=== PATIENT | female | born 1975 | race Caucasian/White ===

== ENCOUNTER → 2017-07-09 | Outpatient (CLI) | payer MEDICARE | END | disposition home or self-care (01) | LOC: CFH 12:13 | PROVIDERS: ATTEND Internal Medicine | DX: R42 Dizziness and giddiness (principal) | CPT/HCPCS: 70544; 82565 ==

== ENCOUNTER → 2017-11-02 | Outpatient (CLI) | payer MEDICARE ==
[~2017-11-02] MED LIST: BUTA1CAP30 PO; ETOD400T PO; LISI-167 PO; MECL25TA4 PO; ONDA4TAB7 PO; OXYC-307 PO; PRAV10TA2 PO; TIZA4CAP PO
[2017-11-02 11:28] LABS: BASOPHILS # (AUTO) 0.05 x10^3/uL (0-0.1); BASOPHILS % (AUTO) 1 % (0-1); EOSINOPHILS # (AUTO) 0.09 x10^3/uL (0-0.4); EOSINOPHILS % (AUTO) 1 % (1-7); LYMPHOCYTES # (AUTO) 1.65 x10^3/uL (1-3.4); LYMPHOCYTES % (AUTO) 24 % (22-44); MD NO; MEAN CORPUSCULAR HGB CONC 33.8 g/dL (32.4-35.8); MEAN CORPUSCULAR VOLUME 94.7 fL (80-100); MONOCYTES # (AUTO) 0.36 x10^3/uL (0.2-0.8); MONOCYTES % (AUTO) 5 % (2-9); NEUTROPHILS % (AUTO) 69 % (42-75); PLATELET COUNT 270 x10^3/uL (130-400); RED BLOOD COUNT 4.51 x10^6/uL (3.82-5.3); RED CELL DISTRIBUTION WIDTH 11.9 % (9.6-15.2)
[2017-11-02 11:35] LABS: MICROSCOPIC NOT IND
[2017-11-02 11:38] LABS: CULTURE INDICATED? NO
[2017-11-02 11:38] LABS: INTERNATIONAL NORMALIZED RATIO 0.99 (0.93-1.1); PROTHROMBIN TIME 10.3 Seconds (9.6-11.5)
[2017-11-02 11:40] LABS: ALANINE AMINOTRANSFERASE 34 U/L (12-78); ALBUMIN 4.1 g/dL (3.4-5.0); ANION GAP 6 mmol/L (5-15); CALCIUM 8.2 mg/dL (8.5-10.1); CHLORIDE 108 mmol/L (98-107)
[2017-11-02 11:42] LABS: ALKALINE PHOSPHATASE 58 U/L (45-117); BILIRUBIN,TOTAL 0.4 mg/dL (0.2-1.0); TOTAL PROTEIN 7.9 g/dL (6.4-8.2)
== END ==
LOC: STAR 10:22
PROVIDERS: ATTEND Neurological Surgery
DX: Z01.818 Encounter for other preprocedural examination (principal); M54.16 Radiculopathy, lumbar region; M51.36 Other intervertebral disc degeneration, lumbar region; M48.062 Spinal stenosis, lumbar region with neurogenic claudication
CPT/HCPCS: 36415; 71046; 80053; 81003; 85025; 85610; 85730; 93005

== ENCOUNTER 2017-11-10 05:27 | Inpatient (IN) | payer MEDICARE ==
[~2017-11-10] VITALS: Ht 160 cm; Wt 87.0 kg
[2017-11-10] MEDS ORDERED: LACTATED RINGERS 1,000 ML IV SCH (06:03)
[2017-11-10] MEDS ORDERED: BACITRACIN 50,000 UNIT ONE (06:15)
[2017-11-10] MEDS ORDERED: THROMBIN 20,000 UNIT VIAL TP ONE (06:15)
[2017-11-10 06:21] LABS: HCG UR SG 1.017 (1.003-1.030)
[2017-11-10 06:32] LABS: AMPHETAMINE SCREEN, URINE Negative (Negative); BARBITURATE SCREEN, URINE Positive (Negative); BENZODIAZEPINE SCREEN, URINE Negative (Negative); CANNABINOID SCREEN, URINE Negative (Negative); COCAINE SCREEN, URINE Negative (Negative); METHADONE SCREEN, URINE Negative (Negative); OPIATE SCREEN, URINE Positive (Negative)
[2017-11-10] MEDS ORDERED: FENTANYL PF 250 MCG/5ML ONE ×2 (07:04→08:17)
[2017-11-10] MEDS ORDERED: MIDAZOLAM 1 MG/ML, 2ML ONE (07:04)
[2017-11-10] MEDS ORDERED: KETAMINE 100 MG/ML, 5ML ONE (07:10)
[2017-11-10] MEDS ORDERED: DEXMEDETOMIDINE 200 MCG/2 ML ONE (07:10)
[2017-11-10] MEDS ORDERED: LABETALOL 5MG/ML, 20ML IV PRN (07:30)
[2017-11-10] MEDS ORDERED: FENTANYL PF 100 MCG/2ML IV PRN (07:30)
[2017-11-10] MEDS ORDERED: PROMETHAZINE 25 MG/ML, 1ML IV PRN (07:30)
[2017-11-10] MEDS ORDERED: LORazepam 2 MG/ML, 1ML IVPush PRN (07:30)
[2017-11-10] MEDS ORDERED: hydrALAzine 20 MG/ML, 1ML IV PRN (07:30)
[2017-11-10] MEDS ORDERED: OXYcodone 5 MG/5 ML ORAL.SOL UDC PO PRN (07:30)
[2017-11-10] MEDS ORDERED: MECLIZINE CHEWABLE 25 MG TAB PO PRN (07:30)
[2017-11-10] MEDS ORDERED: ACETAMINOPHEN 325 MG TABLET PO PRN (07:30)
[2017-11-10] MEDS ORDERED: HALOPERIDOL 5 MG/ML IV PRN (07:30)
[2017-11-10] MEDS ORDERED: MEPERIDINE/PF 25MG/0.5ML IVPush PRN (07:30)
[2017-11-10] MEDS ORDERED: DEXAMETHASONE 4 MG/ML, 1ML ONE (08:06)
[2017-11-10] MEDS ORDERED: ROCURONIUM 10MG/ML,5ML ONE (08:06)
[2017-11-10] MEDS ORDERED: CEFAZOLIN 1,000 MG ONE (08:06)
[2017-11-10] MEDS ORDERED: PROPOFOL 10 MG/ML, 20ML ONE (08:06)
[2017-11-10] MEDS ORDERED: METOCLOPRAMIDE 5 MG/ML, 2ML ONE (08:55)
[2017-11-10] MEDS ORDERED: HYDROmorphone 2 MG/ML, 1ML ONE (09:28)
[2017-11-10] MEDS ORDERED: ACETAMINOPHEN 650 MG/20.3 ML UDC ONE (09:28)
[2017-11-10] MEDS ORDERED: OXYcodone 5 MG/5 ML ORAL.SOL UDC ONE (09:29)
[2017-11-10] MEDS ORDERED: PROMETHAZINE 25 MG/ML, 1ML ONE (09:29)
[2017-11-10] MEDS ORDERED: PHARMACY MAY ADJ FOR RENAL FX MC PRN (09:30)
[2017-11-10] MEDS ORDERED: LABETALOL 5MG/ML, 20ML IVPush PRN (09:30)
[2017-11-10] MEDS ORDERED: SENNA/DOCUSATE TABLET PO PRN (09:30)
[2017-11-10] MEDS ORDERED: ONDANSETRON 2MG/ML, 2ML IVPush PRN (09:30)
[2017-11-10] MEDS ORDERED: DIPHENHYDRAMINE 50 MG/ML, 1ML IVPush PRN (09:30)
[2017-11-10] MEDS ORDERED: MAGNESIUM HYDROXIDE 8%, 30ML UDC PO PRN (09:30)
[2017-11-10] MEDS ORDERED: MECLIZINE HCL 25 MG PO PRN (09:30)
[2017-11-10] MEDS ORDERED: BUTALB/APAP/CAFFEINE 50MG/325MG/40MG PO PRN (09:30)
[2017-11-10] MEDS ORDERED: HYDROcodone/APAP 5/325 TABLET PO PRN (09:30)
[2017-11-10] MEDS ORDERED: BISACODYL 10 MG SUPP PR PRN (09:30)
[2017-11-10] MEDS ORDERED: DIPHENHYDRAMINE 50 MG CAPSULE PO PRN (09:30)
[2017-11-10] MEDS: HYDROmorphone 1 MG/ML, 1ML IV PRN ×3 (09:34→10:03)
[2017-11-10 10:45] VITALS: BP 96/57
[2017-11-10] MEDS: MORPHINE SULFATE 4 MG/ML, 1ML IVPush PRN ×4 (11:32→23:16)
[2017-11-10] MEDS ORDERED: ONDANSETRON ODT 4 MG ONE (11:37)
[2017-11-10] MEDS: CEFAZOLIN PMX 1GM/50ML 50 ML IVPB SCH ×2 (12:43→20:38)
[2017-11-10] MEDS: METOCLOPRAMIDE 5 MG/ML, 2ML IVPush SCH ×2 (12:46→17:19)
[2017-11-10] MEDS: D5%-0.9% NACL+KCL 20MEQ 1,000 ML IV SCH (12:47)
[2017-11-10 13:56] VITALS: BP 105/61
[2017-11-10] MEDS: OXYcodone/APAP 5/325MG TABLET PO PRN ×2 (17:22→21:51)
[2017-11-10] MEDS: PRAVASTATIN 20 MG TABLET PO SCH (19:32)
[2017-11-10] MEDS: METHOCARBAMOL 750 MG TABLET PO PRN (19:32)
[2017-11-10] MEDS: SODIUM CHLORIDE FLUSH 10ML SYR IVF SCH (19:33)
[2017-11-10 20:44] VITALS: BP 98/49
[2017-11-11 00:06] VITALS: BP 104/60
[2017-11-11] MEDS: METOCLOPRAMIDE 5 MG/ML, 2ML IVPush SCH ×2 (01:32→08:09)
[2017-11-11] MEDS: OXYcodone/APAP 5/325MG TABLET PO PRN ×5 (01:57→22:06)
[2017-11-11 04:00] VITALS: BP 103/69
[2017-11-11] MEDS: MORPHINE SULFATE 4 MG/ML, 1ML IVPush PRN ×3 (05:42→19:59)
[2017-11-11] MEDS: ONDANSETRON ODT 4 MG PO PRN ×2 (05:52→14:21)
[2017-11-11 06:00] LABS: ALBUMIN 3.2 g/dL (3.4-5.0); ANION GAP 7 mmol/L (5-15); CALCIUM 7.5 mg/dL (8.5-10.1); CHLORIDE 107 mmol/L (98-107)
[2017-11-11] MEDS ORDERED: BACITRACIN 50,000 UNIT ONE (06:06)
[2017-11-11] MEDS ORDERED: THROMBIN 5,000 UNIT VIAL TP ONE (06:06)
[2017-11-11] MEDS ORDERED: BUPIVACAINE/PF-EPI 0.5% 1:200K ONE (06:06)
[2017-11-11] MEDS: METHOCARBAMOL 750 MG TABLET PO PRN ×3 (06:10→22:06)
[2017-11-11] MEDS ORDERED: MIDAZOLAM 1 MG/ML, 2ML ONE (07:38)
[2017-11-11] MEDS ORDERED: FENTANYL PF 250 MCG/5ML ONE (07:39)
[2017-11-11] MEDS: SODIUM CHLORIDE FLUSH 10ML SYR IVF SCH ×2 (08:09→19:59)
[2017-11-11] MEDS: LISINOPRIL 10 MG TABLET PO SCH (08:09)
[2017-11-11 08:19] VITALS: BP 106/66
[2017-11-11] MEDS ORDERED: KETAMINE 10 MG/ML, 20ML ONE (09:25)
[2017-11-11] MEDS ORDERED: PROPOFOL 100 ML ONE (09:25)
[2017-11-11] MEDS ORDERED: morphine SULFATE/PF 0.5 MG/ML, 10ML IV ONE (09:30)
[2017-11-11] MEDS ORDERED: morphine SULFATE 10 MG/ML, 1ML ONE (09:32)
[2017-11-11] MEDS ORDERED: LIDOCAINE 2%, 10ML ONE (09:39)
[2017-11-11] MEDS ORDERED: SUCCINYLCHOLINE 20 MG/ML, 10ML ONE (09:42)
[2017-11-11] MEDS ORDERED: LACTATED RINGERS 1,000 ML ONE (09:42)
[2017-11-11] MEDS ORDERED: MORPHINE SULFATE 4 MG/ML, 1ML IV ONE (10:00)
[2017-11-11] MEDS ORDERED: ONDANSETRON ODT 8 MG PO PRN (10:30)
[2017-11-11] MEDS ORDERED: PROMETHAZINE 25 MG/ML, 1ML IV PRN (10:30)
[2017-11-11] MEDS ORDERED: OXYcodone 5 MG/5 ML ORAL.SOL UDC PO PRN (10:30)
[2017-11-11] MEDS ORDERED: HYDROcodone/APAP 7.5-325MG/15ML UDC PO PRN (10:30)
[2017-11-11] MEDS ORDERED: LABETALOL 5MG/ML, 20ML IV PRN (10:30)
[2017-11-11] MEDS ORDERED: DIAZEPAM 5 MG/ML, 2ML IVPush PRN (10:30)
[2017-11-11] MEDS ORDERED: ACETAMINOPHEN 325 MG TABLET PO PRN (10:30)
[2017-11-11] MEDS ORDERED: HALOPERIDOL 5 MG/ML IV PRN (10:30)
[2017-11-11] MEDS ORDERED: hydrALAzine 20 MG/ML, 1ML IV PRN (10:30)
[2017-11-11] MEDS ORDERED: MORPHINE SULFATE 4 MG/ML, 1ML IVPush PRN (10:30)
[2017-11-11] MEDS ORDERED: FENTANYL PF 100 MCG/2ML ONE ×3 (10:49→12:29)
[2017-11-11] MEDS ORDERED: VANCOMYCIN 1,000 MG ONE (11:49)
[2017-11-11] MEDS ORDERED: BUPIVACAINE/PF 0.25% ONE (11:52)
[2017-11-11] MEDS ORDERED: MEPERIDINE/PF 25MG/0.5ML ONE (12:29)
[2017-11-11] MEDS ORDERED: HYDROmorphone 1 MG/ML, 1ML ONE (12:29)
[2017-11-11] MEDS: HYDROmorphone 1 MG/ML, 1ML IV PRN ×2 (12:46→13:02)
[2017-11-11] MEDS: FENTANYL PF 100 MCG/2ML IV PRN ×2 (13:00→13:07)
[2017-11-11] MEDS ORDERED: MEPERIDINE/PF 25MG/0.5ML IVPush PRN (13:00)
[2017-11-11] MEDS: D5%-0.9% NACL+KCL 20MEQ 1,000 ML IV SCH (13:51)
[2017-11-11 14:20] VITALS: BP 113/74
[2017-11-11 18:48] VITALS: BP 103/65
[2017-11-11] MEDS: PRAVASTATIN 20 MG TABLET PO SCH (19:59)
[2017-11-12] MEDS: MORPHINE SULFATE 4 MG/ML, 1ML IVPush PRN ×6 (00:03→20:55)
[2017-11-12 00:10] VITALS: BP 107/65
[2017-11-12] MEDS: D5%-0.9% NACL+KCL 20MEQ 1,000 ML IV SCH ×2 (01:20→14:40)
[2017-11-12] MEDS: OXYcodone/APAP 5/325MG TABLET PO PRN ×6 (02:18→22:27)
[2017-11-12 05:33] LABS: CHLORIDE 109 mmol/L (98-107)
[2017-11-12 05:36] LABS: ANION GAP 6 mmol/L (5-15); CALCIUM 8.1 mg/dL (8.5-10.1); CREATININE 0.57 mg/dL (0.55-1.02)
[2017-11-12] MEDS: METHOCARBAMOL 750 MG TABLET PO PRN ×2 (06:09→18:35)
[2017-11-12 08:14] VITALS: BP 97/62
[2017-11-12] MEDS: LISINOPRIL 10 MG TABLET PO SCH (08:22)
[2017-11-12] MEDS: SODIUM CHLORIDE FLUSH 10ML SYR IVF SCH ×2 (09:00→20:59)
[2017-11-12 09:20] LABS: ANION GAP 7 mmol/L (5-15); CALCIUM 7.7 mg/dL (8.5-10.1); CHLORIDE 106 mmol/L (98-107)
[2017-11-12 09:22] LABS: CREATININE 0.64 mg/dL (0.55-1.02)
[2017-11-12 13:45] VITALS: BP 91/57
[2017-11-12 19:06] VITALS: BP 105/68
[2017-11-12] MEDS: PRAVASTATIN 20 MG TABLET PO SCH (20:55)
[2017-11-13] MEDS: MORPHINE SULFATE 4 MG/ML, 1ML IVPush PRN ×2 (00:37→04:32)
[2017-11-13 02:24] VITALS: BP 101/62
[2017-11-13] MEDS: ONDANSETRON ODT 4 MG PO PRN (02:31)
[2017-11-13] MEDS: OXYcodone/APAP 5/325MG TABLET PO PRN ×2 (02:58→08:19)
[2017-11-13] MEDS: METHOCARBAMOL 750 MG TABLET PO PRN (02:58)
[2017-11-13] MEDS: D5%-0.9% NACL+KCL 20MEQ 1,000 ML IV SCH (04:00)
[2017-11-13 06:05] LABS: CHLORIDE 105 mmol/L (98-107)
[2017-11-13 06:09] LABS: ANION GAP 7 mmol/L (5-15); CALCIUM 8.1 mg/dL (8.5-10.1); CREATININE 0.55 mg/dL (0.55-1.02)
[2017-11-13] MEDS: LISINOPRIL 10 MG TABLET PO SCH (08:20)
[2017-11-13] MEDS: SODIUM CHLORIDE FLUSH 10ML SYR IVF SCH (08:20)
[2017-11-13 08:32] VITALS: BP 100/57
[2017-11-13 09:56] LABS: ALBUMIN 2.8 g/dL (3.4-5.0); ANION GAP 6 mmol/L (5-15); CALCIUM 8.1 mg/dL (8.5-10.1); CHLORIDE 105 mmol/L (98-107)
[2017-11-13 09:57] LABS: CREATININE 0.65 mg/dL (0.55-1.02)
[2017-11-13] MEDS ORDERED: OXYC-302 PO (10:05)
[2017-11-13] MEDS ORDERED: METH750T87 PO (10:05)
== END 2017-11-13 10:53 | disposition home or self-care (01) | DRG 453 ==
LOC: ORIP 05:27 → 4NOR 10:24 → DCLOUNGE 11-13 10:42
PROVIDERS: ADMIT Neurological Surgery; ATTEND Neurological Surgery
PROC: 0SG00A0 Fusion of Lumbar Vertebral Joint with Interbody Fusion Device, Anterior Approach, Anterior Column, Open Approach (ICD-10-PCS; 2017-11-10)
PROC: 0SB20ZZ Excision of Lumbar Vertebral Disc, Open Approach (ICD-10-PCS; 2017-11-10)
PROC: 0SB40ZZ Excision of Lumbosacral Disc, Open Approach (ICD-10-PCS; 2017-11-10)
PROC: 0SG30A0 Fusion of Lumbosacral Joint with Interbody Fusion Device, Anterior Approach, Anterior Column, Open Approach (ICD-10-PCS; 2017-11-10)
PROC: 4A11X4G Monitoring of Peripheral Nervous Electrical Activity, Intraoperative, External Approach (ICD-10-PCS; 2017-11-10)
PROC: 0SG3071 Fusion of Lumbosacral Joint with Autologous Tissue Substitute, Posterior Approach, Posterior Column, Open Approach (ICD-10-PCS; 2017-11-10)
PROC: 0SG0071 Fusion of Lumbar Vertebral Joint with Autologous Tissue Substitute, Posterior Approach, Posterior Column, Open Approach (ICD-10-PCS; principal; 2017-11-10 07:00)
DX: M48.061 Spinal stenosis, lumbar region without neurogenic claudication (principal); E43 Unspecified severe protein-calorie malnutrition; E66.01 Morbid (severe) obesity due to excess calories; M51.16 Intervertebral disc disorders with radiculopathy, lumbar region; Z88.0 Allergy status to penicillin; Z88.8 Allergy status to other drugs, medicaments and biological substances; Z68.34 Body mass index [BMI] 34.0-34.9, adult; G89.29 Other chronic pain; I10 Essential (primary) hypertension; M47.9 Spondylosis, unspecified
CPT/HCPCS: 36415; 72100; 74018; 80048; 80307; 81025; 82040; 86850; 86900; C1713; C1729; J0690; J1100; J1170; J2175; J2250; J2274; J2405; J2550; J2704; J3010; J3370; J3490; Q0162; C1762; J0330; J2765; J3480; J7120